=== PATIENT | female | born 2005 | race Caucasian/White ===

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

== ENCOUNTER → 2024-10-16 | Outpatient (CLI) | payer OTHER ==
--- NOTE | 2024-10-16 07:33 | USB ---
Reason for Exam: Clinical finding. Technique: Method: Targeted. Findings: The lower section of the breast of the right breast, the axilla of the right breast and the retroareolar of the right breast were scanned. Targeted ultrasound 6-8 o'clock position including scanning of the subareolar region and axilla. At the 7:00 patient directed palpable site, 3 cm from the nipple, no solid or cystic lesion is seen. No solid or cystic lesion in the adjacent tissues. The patient reports that the finding is no longer palpable. No axillary adenopathy. Overall Assessment: Negative, BI-RAD 1 Management: Screening Mammogram of both breasts at age 38. Unless there is an indication to start sooner. If there is any recurrent, suspicious palpable abnormality, the patient can be rescanned. A clinical breast exam by your physician is recommended on an annual basis and results should be correlated with mammographic findings. This exam should not preclude additional follow-up of suspicious palpable abnormalities. Results were given to the patient verbally at the time of exam. [facility], , 10/16/2024 7:29 AM. Electronically signed and approved by: Amairani Rosario M.D. Radiologist
== END | disposition home or self-care (01) ==
LOC: RADUSWWP 06:48
PROVIDERS: ATTEND Family Medicine
DX: N63.10 Unspecified lump in the right breast, unspecified quadrant (principal)